=== PATIENT | male | born 1940 | race African-American/Black ===

== ENCOUNTER 2021-10-25 12:30 | Inpatient (IN) ==
[2021-10-25] MEDS ORDERED: SODIUM CHLORIDE 0.9% 1,000 ML IV STA (13:42)
[2021-10-25 13:53] LABS: Basophils % 0.1 % (0.0-0.8); Hematocrit 30.7 VOL% (42.0-52.0); Immature Granulocytes % 0.8 %; Immature Granulocytes Absolute 0.15 #; Lymphocytes # 0.8 10*3/uL (1.4-4.0); Lymphocytes % 3.9 % (21.2-54.2); Mean Corpuscular HGB Conc 32.6 GM/DL (32-36); Mean Corpuscular Volume 91.4 FL (87-102); Monocytes % 5.2 % (1.7-12.7); Platelet Count 407 T/CUMM (130-400); Red Blood Count 3.36 MC/CUMM (3.8-5.5); Red Cell Distribution Width 14.4 % (9.3-17.3); White Blood Count 19.4 T/CUMM (4-12)
[2021-10-25 14:18] LABS: Albumin 2.7 G/DL (3.4-5.0); Bilirubin,Total 1.4 MG/DL (0.20-1.00); Osmolality,Calculated 279.5 MOS/KG (273-304); Potassium 5.1 MMOL/L (3.5-5.1); Total Protein 6.6 G/DL (6.4-8.2)
[2021-10-25 14:25] LABS: Lymphocytes 7 % (20-55); Platelet Estimate Increased; Segmented Neutrophils 88 % (50-85); Total Cells Counted 100
[2021-10-25 14:26] LABS: Hypochromia Slight; Polychromasia Few
[2021-10-25] MEDS ORDERED: hydrALAZINE 20 MG/1 ML VIAL IV PRN (15:34)
[2021-10-25] MEDS ORDERED: GLUCAGON 1 MG VIAL IM PRN (15:34)
[2021-10-25] MEDS ORDERED: DEXTROSE 10% 250 ML BAG IV PRN (15:47)
[2021-10-25] MEDS: HEPARIN 5,000 UNIT/1 ML VIAL SUBCUT SCH (16:18)
[2021-10-25] MEDS: SODIUM CHLORIDE 0.9% 1,000 ML IV SCH (16:19)
[2021-10-25] MEDS: ONDANSETRON 4 MG/2 ML VIAL IV PRN (17:53)
[2021-10-25] MEDS: MORPHINE 2 MG/1 ML SYRINGE IV PRN (17:54)
[2021-10-26] MEDS: SODIUM CHLORIDE 0.9% 1,000 ML IV SCH ×5 (00:20→19:30)
[2021-10-26 04:58] LABS: Basophils % 0.2 % (0.0-0.8); Hematocrit 27.3 VOL% (42.0-52.0); Hemoglobin 8.8 GM/DL (14.0-18.0); Immature Granulocytes Absolute 0.17 #; Mean Corpuscular HGB Conc 32.2 GM/DL (32-36); Mean Corpuscular Volume 91.6 FL (87-102); Monocytes % 6.9 % (1.7-12.7); Neutrophils % 85.9 % (38.7-73.9); Platelet Count 415 T/CUMM (130-400); Red Blood Count 2.98 MC/CUMM (3.8-5.5); Red Cell Distribution Width 14.4 % (9.3-17.3)
[2021-10-26 05:18] LABS: Albumin 2.4 G/DL (3.4-5.0); Bilirubin,Total 1.3 MG/DL (0.20-1.00); Calcium 8.7 MG/DL (8.5-10.1); Osmolality,Calculated 282.2 MOS/KG (273-304); Potassium 5.4 MMOL/L (3.5-5.1); Total Protein 6.1 G/DL (6.4-8.2)
[2021-10-26] MEDS: HEPARIN 5,000 UNIT/1 ML VIAL SUBCUT SCH (08:11)
[2021-10-26] MEDS ORDERED: SODIUM POLYSTYRENE SULFATE 15 GM/60 ML BOTTLE PO STA (08:50)
[2021-10-26] MEDS: PANTOPRAZOLE 40 MG VIAL IV SCH (09:08)
[2021-10-26 10:49] LABS: % Iron Saturation 24.9 % (18-50)
[2021-10-26 11:20] LABS: Folate 9.55 NG/ML (5.38-24.0)
[2021-10-26] MEDS: MORPHINE 2 MG/1 ML SYRINGE IV PRN ×2 (12:30→19:16)
[2021-10-27] MEDS: ONDANSETRON 4 MG/2 ML VIAL IV PRN (03:40)
[2021-10-27] MEDS: MORPHINE 2 MG/1 ML SYRINGE IV PRN ×6 (03:40→21:40)
[2021-10-27] MEDS: PANTOPRAZOLE 40 MG VIAL IV SCH (08:45)
[2021-10-27] MEDS: SODIUM CHLORIDE 0.9% 1,000 ML IV SCH ×2 (09:22→23:30)
[2021-10-28] MEDS: MORPHINE 2 MG/1 ML SYRINGE IV PRN ×9 (03:20→23:35)
[2021-10-28] MEDS: PANTOPRAZOLE 40 MG VIAL IV SCH (08:14)
[2021-10-28] MEDS: SODIUM CHLORIDE 0.9% 1,000 ML IV SCH ×3 (14:46→16:23)
[2021-10-29] MEDS: MORPHINE 2 MG/1 ML SYRINGE IV PRN ×4 (00:45→16:25)
[2021-10-29] MEDS: SODIUM CHLORIDE 0.9% 1,000 ML IV SCH ×2 (05:25→15:50)
[2021-10-29 08:59] VITALS: BP 119/83
[2021-10-29] MEDS: PANTOPRAZOLE 40 MG VIAL IV SCH (09:59)
[2021-10-29] MEDS ORDERED: ONDANSETRON ODT 4 MG TABLET PO PRN (15:20)
[2021-10-30] MEDS ORDERED: PANTOPRAZOLE 40 MG TABLET PO SCH (09:00)
== END 2021-10-29 17:50 | disposition hospice, home (50) | DRG 375 ==
LOC: N.ED 12:30 → SUATTDRO 15:35 → N.EDINP 15:35 → N.TELES 16:54
PROVIDERS: ADMIT Internal Medicine; ATTEND Internal Medicine